=== PATIENT | female | born 1975 | race Caucasian/White ===

== ENCOUNTER 2017-01-13 21:34 | Observation (INO) | payer OTHER ==
[2017-01-13] MEDS ORDERED: Hydromorphone 1 mg/ml Ampule IM ONE (22:05)
[2017-01-13] MEDS ORDERED: Phenergan 25 MG INJ IM ONE (22:05)
--- NOTE | 2017-01-13 22:05 | ERPHSYRPT ---
- History of Present Illness Time Seen by Provider: 01/13/17 21:55 Source: patient Exam Limitations: no limitations Patient Subjective Stated Complaint: pt states she has been having pain in the mid back area and wraps around to her ribs. Triage Nursing Assessment: pt alert and oriented, answers questions approp. pt ambulatory with steady gait noted. respirations nonlabored with lungs cta. Physician History: ABOUT 30 MINUTES AGO PT WAS SITTING WHEN SUDDENLY SHE STARTED WITH SHARP/ACHY MID BACK PAIN, UPPER ABDOMINAL PAIN AND VOMITING X2; DENIES FEVER, COUGH, SHORTNESS OF AIR, ABDOMINAL PAIN, HEMATURIA. Allergies/Adverse Reactions: hydrocodone Adverse Reaction (Verified 01/13/17 21:50) Vomiting heart medication Allergy (Uncoded 01/13/17 21:49) Home Medications: No Home Meds 1 ea [facility] UD 01/13/17 [History] Hx Tetanus, Diphtheria Vaccination/Date Given: Yes (June 2013) Hx Influenza Vaccination/Date Given: No Hx Pneumococcal Vaccination/Date Given: No Immunizations Up to Date: Yes - Review of Systems Constitutional: No Fever Respiratory: No Dyspnea Abdominal/Gastrointestinal: Abdominal Pain, Vomiting Musculoskeletal: Back Pain All Other Systems: Reviewed and Negative - Past Medical History Pertinent Past Medical History: Yes Neurological History: No Pertinent History ENT History: No Pertinent History Cardiac History: Other Respiratory History: No Pertinent History Endocrine Medical History: No Pertinent History Musculoskeletal History: No Pertinent History GI Medical History: No Pertinent History History: No Pertinent History Psycho-Social History: No Pertinent History Female Reproductive Disorders: No Pertinent History Other Medical History: heart condition rapid heart rate at times - Past Surgical History Past Surgical History: Yes Neuro Surgical History: No Pertinent History Cardiac: No Pertinent History Respiratory: No Pertinent History Gastrointestinal: No Pertinent History Genitourinary: No Pertinent History Musculoskeletal: No Pertinent History Female Surgical History: Lumpectomy, Tubal Ligation Other Surgical History: gtube inserted with then removed 2 lumps removed in lt and rt breast - Social History Smoking Status: Never smoker Exposure to second hand smoke: No Drug Use: none Patient Lives Alone: No - Female History Hx Last Menstrual Period: last week Hx Now: No - Nursing Vital Signs Nursing Vital Signs: Initial Vital Signs Temperature 97.9 F Temperature Source Oral Pulse Rate 59 Respiratory Rate 16 Blood Pressure [] 112/56 Pain Intensity [] 10 Pain Intensity 0 - Physical Exam General Appearance: alert Eye Exam: PERRL/EOMI Ears, Nose, Throat Exam: TMs normal, pharynx normal, moist mucous membranes Neck Exam: normal inspection Respiratory Exam: lungs clear Cardiovascular Exam: normal heart sounds Gastrointestinal/Abdomen Exam: normal bowel sounds Back Exam: normal inspection, normal range of motion Extremity Exam: normal inspection, No pedal edema Neurologic Exam: alert, cooperative Skin Exam: warm, dry SpO2 Interpretation: normal SpO2: 99 Oxygen Delivery: Room Air - Course Nursing assessment & vital signs reviewed: Yes - CT Exams Abdomen/Pelvis CT Interpretation: Tele-radiologist Report (CHOLELITHIASIS) - Radiology Ultrasound Exam Gallbladder Ultrasound: Other (TECH REPORT: GALLBLADDER DISEASE.) Ordered Tests: Active Orders 24 hr Category Date Time Status ABDOMEN AND PELVIS W/0 CONTRAS [CT] Stat Exams 01/13/17 23:04 Taken GALLBLADDER [US] Stat Exams 01/14/17 00:00 Taken AMYLASE Stat Lab 01/13/17 22:30 Completed BLOOD CULTURE Stat Lab 01/14/17 02:04 Ordered CBC W DIFF Stat Lab 01/13/17 22:30 Completed CMP Stat Lab 01/13/17 22:30 Completed HCG QUALITATIVE,SERUM Stat Lab 01/13/17 22:30 Completed LIPASE Stat Lab 01/13/17 22:30 Completed UA W/ MICROSCOPIC Stat Lab 01/13/17 22:15 Completed Urine Triage Profile Stat Lab 01/13/17 22:15 Completed Medication Summary Generic Name Dose Route Start Last Admin Trade Name Freq PRN Reason Stop Dose Admin Piperacillin Sod/Tazobactam Sod 100 mls @ 100 mls/hr 01/14/17 02:04 Zosyn 3.375gm/100 Ml D5w IV 01/14/17 03:03 STAT ONE Discontinued Medications Generic Name Dose Route Start Last Admin Trade Name Freq PRN Reason Stop Dose Admin Hydromorphone HCl 1 mg 01/13/17 22:05 01/13/17 22:14 Hydromorphone 1 Mg/Ml Ampule IM 01/13/17 22:06 1 mg STAT ONE Administration Hydromorphone HCl Confirm 01/13/17 22:12 Hydromorphone 1 Mg/Ml Ampule Administered 01/13/17 22:13 Dose 1 mg .ROUTE .STK-MED ONE Promethazine HCl 25 mg 01/13/17 22:05 01/13/17 22:16 Phenergan 25 Mg Inj IM 01/13/17 22:06 25 mg STAT ONE Administration Promethazine HCl Confirm 01/13/17 22:11 Phenergan 25 Mg Inj Administered 01/13/17 22:12 Dose 25 mg .ROUTE .K-MED ONE Lab/Rad Data: Laboratory Result Diagrams 01/13/17 22:30 01/13/17 22:30 Laboratory Results 01/13/17 01/13/17 01/13/17 Range/Units 22:30 22:30 22:30 WBC 11.5 H (4.0-10.5) K/mm3 RBC 4.49 (4.1-5.4) M/mm3 Hgb 11.7 L (12.0-16.0) gm/dl Hct 36.9 (35-47) % MCV 82.2 (78-100) fl MCH 26.0 (26-32) pg MCHC 31.7 L (32-36) g/dl RDW 14.4 H (11.5-14.0) % Plt Count 347 (150-450) K/mm3 MPV 10.2 H (6-9.5) fl Gran % 72.0 H (36.0-66.0) % Lymphocytes % 20.5 L (24.0-44.0) % Monocytes % 5.6 (0.0-12.0) % Eosinophils % 1.6 (0.00-5.0) % Basophils % 0.3 (0.0-0.4) % Basophils # 0.03 (0-0.4) Sodium 142 (136-145) mEq/L Potassium 4.1 (3.5-5.1) mEq/L Chloride 105 (98-107) mEq/L Carbon Dioxide 27.0 (21-32) mEq/L Anion Gap 13.9 (5-15) MEQ/L BUN 10 (9-20) mg/dL Creatinine 0.98 (0.55-1.30) mg/dl Estimated GFR > 60 ML/MIN Glucose 102 (70-110) MG/DL Calcium 9.0 (8.5-10.1) mg/dL Total Bilirubin 0.5 (0.2-1.0) mg/dL AST 69 H (15-37) U/L ALT 44 (12-78) U/L Alkaline Phosphatase 123 H (46-116) U/L Serum Total Protein 7.6 (6.4-8.2) gm/dL Albumin 3.8 (3.4-5.0) g/dL Amylase 31 (25-115) U/L Lipase 134 (73-393) U/L Serum , Qual NEGATIVE (Negative) Ur Collection Type Urine Color (YELLOW) Urine Appearance (CLEAR) Urine pH (5-6) Ur Specific [place] (1.005-1.025) Urine Protein (Negative) Urine Glucose (UA) (NEGATIVE) mg/dL Urine Ketones (NEGATIVE) Urine Nitrite (NEGATIVE) Urine Bilirubin (NEGATIVE) Urine Urobilinogen (0-1) mg/dL Urine WBC (Auto) (NEGATIVE) Urine RBC (Auto) (0-5) Nishant/ul Urine Microscopic RBC (0-2) /HPF Ur Epithelial Cells (FEW) /HPF Urine Bacteria (NEGATIVE) /HPF Urine Opiates Level (NEGATIVE) Ur Methadone (NEGATIVE) Urine Barbiturates (NEGATIVE) Ur Phencyclidine (PCP) (NEGATIVE) Urine Amphetamine (NEGATIVE) U Benzodiazepine Level (NEGATIVE) Urine Cocaine (NEGATIVE) Urine Marijuana (THC) (NEGATIVE) Specimen Received 01/13/17 01/13/17 Range/Units 22:15 22:15 WBC (4.0-10.5) K/mm3 RBC (4.1-5.4) M/mm3 Hgb (12.0-16.0) gm/dl Hct (35-47) % MCV (78-100) fl MCH (26-32) pg MCHC (32-36) g/dl RDW (11.5-14.0) % Plt Count (150-450) K/mm3 MPV (6-9.5) fl Gran % (36.0-66.0) % Lymphocytes % (24.0-44.0) % Monocytes % (0.0-12.0) % Eosinophils % (0.00-5.0) % Basophils % (0.0-0.4) % Basophils # (0-0.4) Sodium (136-145) mEq/L Potassium (3.5-5.1) mEq/L Chloride (98-107) mEq/L Carbon Dioxide (21-32) mEq/L Anion Gap (5-15) MEQ/L BUN (9-20) mg/dL Creatinine (0.55-1.30) mg/dl Estimated GFR ML/MIN Glucose (70-110) MG/DL Calcium (8.5-10.1) mg/dL Total Bilirubin (0.2-1.0) mg/dL AST (15-37) U/L ALT (12-78) U/L Alkaline Phosphatase (46-116) U/L Serum Total Protein (6.4-8.2) gm/dL Albumin (3.4-5.0) g/dL Amylase (25-115) U/L Lipase (73-393) U/L Serum , Qual (Negative) Ur Collection Type CLEAN CATCH Urine Color YELLOW (YELLOW) Urine Appearance CLEAR (CLEAR) Urine pH 8.5 (5-6) Ur Specific [place] 1.020 (1.005-1.025) Urine Protein TRACE (Negative) Urine Glucose (UA) NEGATIVE (NEGATIVE) mg/dL Urine Ketones TRACE (NEGATIVE) Urine Nitrite NEGATIVE (NEGATIVE) Urine Bilirubin NEGATIVE (NEGATIVE) Urine Urobilinogen 1 (0-1) mg/dL Urine WBC (Auto) NEGATIVE (NEGATIVE) Urine RBC (Auto) TRACE NON-HEM (0-5) Nishant/ul Urine Microscopic RBC 0-2 (0-2) /HPF Ur Epithelial Cells FEW (FEW) /HPF Urine Bacteria RARE (NEGATIVE) /HPF Urine Opiates Level NEG. (NEGATIVE) Ur Methadone NEG. (NEGATIVE) Urine Barbiturates NEG. (NEGATIVE) Ur Phencyclidine (PCP) NEG. (NEGATIVE) Urine Amphetamine NEG. (NEGATIVE) U Benzodiazepine Level NEG. (NEGATIVE) Urine Cocaine NEG. (NEGATIVE) Urine Marijuana (THC) NEG. (NEGATIVE) Specimen Received 01/13/17:2215 - Progress Discussed with DrCody: Jennifer (OBS - [id number]) - Departure Time of Disposition: 02:06 Departure Disposition: Observation Clinical Impression: ACUTE CHOLECYSTITIS Condition: Fair Critical Care Time: No Referrals: DOCTOR,NO FAMILY [Primary Care Provider] -
[2017-01-13] MEDS ORDERED: Phenergan 25 MG INJ ONE (22:11)
[2017-01-13] MEDS ORDERED: Hydromorphone 1 mg/ml Ampule ONE (22:12)
[2017-01-13 22:34] LABS: BASOPHIL % 0.3 % (0.0-0.4); Eosinophil % 1.6 % (0.00-5.0); Lymphocytes % 20.5 % (24.0-44.0); Mean Cell Volume 82.2 fl (78-100); Mean Platelet Volume 10.2 fl (6-9.5); Monocytes % 5.6 % (0.0-12.0); Platelet Count 347 K/mm3 (150-450); Red Blood Count 4.49 M/mm3 (4.1-5.4); Red Cell Distribution Width 14.4 % (11.5-14.0); White Blood Count 11.5 K/mm3 (4.0-10.5)
[2017-01-13 22:58] LABS: ALBUMIN 3.8 g/dL (3.4-5.0); ALKALINE PHOSPHATASE 123 U/L (46-116); ANION GAP 13.9 MEQ/L (5-15); BILIRUBIN,TOTAL 0.5 mg/dL (0.2-1.0); BLOOD UREA NITROGEN 10 mg/dL (9-20); CHLORIDE 105 mEq/L (98-107); Glucose 102 MG/DL (70-110); LIPASE 134 U/L (73-393); Potassium 4.1 mEq/L (3.5-5.1); SGOT/AST 69 U/L (15-37); SGPT/ALT 44 U/L (12-78); SODIUM 142 mEq/L (136-145); Total Protein 7.6 gm/dL (6.4-8.2)
[2017-01-13 23:01] LABS: Bacteria RARE /HPF (NEGATIVE); COMPLETE URINE MICROSCOPIC? YES; Collection Type CLEAN CATCH; Epithelial Cells FEW /HPF (FEW); Ph 8.5 (5-6)
[2017-01-14] MEDS ORDERED: Zosyn 3.375GM/100 Ml D5W 100 ML IV ONE ×2 (02:04→02:14)
[2017-01-14] MEDS ORDERED: Sodium Chloride 0.9% 1000 ML 1,000 ML IV SCH (02:46)
[2017-01-14] MEDS ORDERED: DILAUDID 2 MG INJECTION IV PRN (02:46)
[2017-01-14] MEDS ORDERED: Phenergan 25 MG INJ IV PRN (02:46)
[2017-01-14] MEDS: Zosyn 3.375GM/100 Ml D5W 100 ML IV SCH ×3 (06:08→19:55)
[2017-01-14 06:28] LABS: BASOPHIL % 0.2 % (0.0-0.4); Eosinophil % 0.7 % (0.00-5.0); Mean Cell Volume 83.5 fl (78-100); Mean Platelet Volume 10.4 fl (6-9.5); Monocytes % 6.1 % (0.0-12.0); Platelet Count 344 K/mm3 (150-450); Red Blood Count 4.37 M/mm3 (4.1-5.4); Red Cell Distribution Width 14.5 % (11.5-14.0); White Blood Count 10.9 K/mm3 (4.0-10.5)
[2017-01-14 06:29] LABS: Mean Corpuscular Hemoglobin 25.8 pg (26-32)
[2017-01-14 06:48] LABS: ALBUMIN 3.5 g/dL (3.4-5.0); ALKALINE PHOSPHATASE 151 U/L (46-116); ANION GAP 13.7 MEQ/L (5-15); BILIRUBIN,TOTAL 1.1 mg/dL (0.2-1.0); BLOOD UREA NITROGEN 10 mg/dL (9-20); CHLORIDE 104 mEq/L (98-107); Carbon Dioxide 26.3 mEq/L (21-32); Glucose 114 MG/DL (70-110); Potassium 4.2 mEq/L (3.5-5.1); SGOT/AST 203 U/L (15-37); SGPT/ALT 145 U/L (12-78); SODIUM 140 mEq/L (136-145); Total Protein 7.6 gm/dL (6.4-8.2)
[2017-01-14 07:06] LABS: INR 1.08 (0.8-3.0); PROTIME 12.1 SECONDS (9.95-12.35)
[2017-01-14 07:09] LABS: PTT 32.4 SECONDS (25.3-37.0)
[2017-01-14] MEDS ORDERED: Decadron 4 MG INJ IV ONE (08:00)
[2017-01-14] MEDS ORDERED: TORAdol 30 mg Injection IV ONE (08:00)
[2017-01-14] MEDS ORDERED: Zofran 4 MG/2 ML VIAL IV ONE (08:00)
[2017-01-14] MEDS ORDERED: Zemuron 100 MG/10 ML IJ ONE (08:00)
[2017-01-14] MEDS ORDERED: Versed 2 MG/2 ML Injection IV ONE (08:00)
[2017-01-14] MEDS ORDERED: Quelicin Fliptop 200 MG/10 ML IV ONE (08:00)
[2017-01-14] MEDS ORDERED: DIPRIVAN 200 MG/20 ML IV ONE (08:00)
[2017-01-14] MEDS ORDERED: MEFOXIN 2 GM PREMIX** 50 ML IV SCH (08:00)
[2017-01-14] MEDS ORDERED: Lactated Ringers 1,000 ML IV SCH (08:00)
[2017-01-14] MEDS ORDERED: BRIDION 200MG/2ML IV ONE (08:00)
[2017-01-14] MEDS ORDERED: DILAUDID 2 MG INJECTION IV ONE (08:00)
[2017-01-14] MEDS ORDERED: SUBLIMAZE 250 MCG/5 ML IV ONE (08:00)
--- NOTE | 2017-01-14 08:50 | XRAY ---
Indication: Abdominal pain and elevated liver function testing. Multiple contiguous axial images obtained through the abdomen and pelvis without contrast as ordered. Comparison: October 30, 2006. Lung bases clear. Heart is not enlarged. Gallbladder demonstrates gallstones, largest 2.6 cm. No pericholecystic fluid or biliary distention. Again 13 cm splenomegaly. Noncontrasted stomach and bowel loops appear nonobstructed. Normal appendix. No free fluid/air. Remaining liver, pancreas, spleen, adrenal glands, kidneys, ureters, bladder, uterus, and aorta appear unremarkable for noncontrast exam. Osseous structures intact. Impression: 1. Gallstones without acute cholecystitis or biliary distention on this noncontrast exam. 2. Stable splenomegaly. Comment: Preliminary interpretation was made by [facility]. No critical discrepancy. CT DI 19.26
--- NOTE | 2017-01-14 08:52 | XRAY ---
Indication: Back pain and nausea. Two-dimensional right upper quadrant abdominal sonogram performed. Comparison: None Gallbladder demonstrates multiple gallstones. There is gallbladder wall thickening measuring 6.6 mm in thickness. No pericholecystic fluid. Common bile duct measures 4.2 mm. No intrahepatic biliary distention. Remaining visualized portions of the liver, aorta, pancreas, and right kidney appear sonographically unremarkable. Right kidney measures 10.8 cm in length. Impression: Gallstones with gallbladder wall thickening. Rule out chronic cholecystitis. Comment: Preliminary report was given.
[2017-01-14] MEDS: PROTONIX 40 MG IV IV SCH (10:12)
[2017-01-14] MEDS ORDERED: Lactated Ringers 1,000 ML IV ONE (11:06)
[2017-01-14] MEDS ORDERED: Sensorcaine 0.25% 10 ML ONE (11:06)
[2017-01-14] MEDS ORDERED: Pepcid 20 MG VIAL IV SCH (13:00)
[2017-01-14] MEDS ORDERED: BICITRA 30 ML CUP PO SCH (13:00)
[2017-01-14] MEDS ORDERED: DILAUDID 2 MG INJECTION ONE (18:05)
[2017-01-14] MEDS ORDERED: Zofran 4 MG/2 ML VIAL IV PRN (19:37)
[2017-01-14] MEDS ORDERED: Dextrose 5% -0.45 NaCl 1000 ML 1,000 ML IV SCH (21:15)
[2017-01-14] MEDS: MEFOXIN 1 Gm/ D5W 50 Ml** 50 ML IV SCH ×2 (22:15→22:17)
[2017-01-15] MEDS: MEFOXIN 1 Gm/ D5W 50 Ml** 50 ML IV SCH ×2 (00:55→05:33)
[2017-01-15] MEDS: Zosyn 3.375GM/100 Ml D5W 100 ML IV SCH ×2 (01:06→06:31)
[2017-01-15 05:24] LABS: Mean Cell Volume 85.1 fl (78-100); Mean Corpuscular Hemoglobin 25.9 pg (26-32); Mean Platelet Volume 10.9 fl (6-9.5); Platelet Count 371 K/mm3 (150-450); Red Blood Count 3.43 M/mm3 (4.1-5.4); Red Cell Distribution Width 14.6 % (11.5-14.0); White Blood Count 10.8 K/mm3 (4.0-10.5)
[2017-01-15] MEDS ORDERED: Morphine PCA 1 MG/ML 30 ML IV PRN (07:51)
[2017-01-15] MEDS ORDERED: ULTRAM 50 MG PO PRN (07:51)
[2017-01-15] MEDS: PROTONIX 40 MG IV IV SCH (08:23)
[2017-01-15] MEDS ORDERED: ENOXAPARIN SODIUM SQ SCH (10:00)
[2017-01-15 11:10] VITALS: BP 107/70; PULSE 80; O2SAT 96
--- NOTE | 2017-01-17 11:49 | OP ---
SURGERY DATE: 01/14/17 SURGERY TIME: 1649 PREOPERATIVE DIAGNOSIS: 1. ACUTE CHOLECYSTITIS, CHOLELITHIASIS. POSTOPERATIVE DIAGNOSIS: 1. ACUTE CHOLECYSTITIS, CHOLELITHIASIS. PROCEDURE: 1. Laparoscopic cholecystectomy. SURGEON: Vahid Mcguire M.D. ANESTHESIA: General endotracheal tube. COMPLICATIONS: None. CONDITION: Stable. INDICATION: Patient with upper abdominal pain and US positive. Seen and examined. Procedure discussed in detail. Wished to proceed. OPERATIVE PROCEDURE: Taken to surgery. General anesthetic. Routine prep and drape. Veress needle inserted. Opened to a pressure of 1. Insufflated to a pressure of 14. #10 trocar at the umbilicus. Three 5s across the abdomen. Good visualization. The gallbladder was large. The gallbladder distended. Cystic duct defined. Cystic artery defined. Both structures triply Ligaclipped and transected. Clips totally cross wall approximated. Gallbladder rolled out of gallbladder fossa. Gallbladder delivered through the abdominal port. Widened slightly. Field was dry. CO2 was exsufflated. Whole closure device had been used with 0 Vicryl. Skin closed with 4-0 Vicryl. Steri-strips. Patient tolerated the procedure satisfactory.
== END 2017-01-15 12:30 | disposition home or self-care (01) ==
LOC: ED 21:34 → MED SURG 01-14 02:41
PROVIDERS: ADMIT Surgery; ATTEND Surgery
PROC: 0FT44ZZ Resection of Gallbladder, Percutaneous Endoscopic Approach (ICD-10-PCS; principal; 2017-01-14)
DX: K80.00 Calculus of gallbladder with acute cholecystitis without obstruction (principal); R10.10 Upper abdominal pain, unspecified
CPT/HCPCS: 00790; 36415; 74176; 76705; 80053; 80307; 81000; 82150; 83690; 84703; 85025; 85027; 85610; 85730; 87040; 93268; 94760; 96365; 96372; 96374; 99140; 99284; 99285; G0378; J0330; J0694; J1100; J1170; J1650; J1885; J2250; J2405; J2543; J2550; J2704; J3010

== ENCOUNTER 2021-02-25 17:34 | Emergency (ER) | payer OTHER ==
[2021-02-25] MEDS ORDERED: Sodium Chloride 0.9% 1000 ML 1,000 ML IV STA (17:56)
[2021-02-25] MEDS ORDERED: PROTONIX 40 MG IV IV ONE ×2 (17:56→17:59)
[2021-02-25] MEDS ORDERED: MORPHINE SULFATE 4 MG INJ IV ONE (17:56)
[2021-02-25] MEDS ORDERED: MORPHINE SULFATE 4 MG INJ ONE (18:00)
[2021-02-25] MEDS ORDERED: Sodium Chloride 0.9% 1000 ML 1,000 ML ONE (18:00)
[2021-02-25 18:13] LABS: BASOPHIL % 0.1 % (0.0-0.4); Basophil (Absolute #) 0.02 (0-0.4); Eosinophil % 0.2 % (0.00-5.0); Eosinophil (Absolute #) 0.04 (0-0.5); Hematocrit 41.6 % (35-47); Hemoglobin 13.7 gm/dl (12.0-16.0); Lymphocyte (Absolute #) 1.53 (1.0-4.6); Lymphocytes % 8.7 % (24.0-44.0); Mean Cell Volume 85.8 fl (78-100); Mean Corpuscular Hemoglobin 28.2 pg (26-32); Mean Corpuscular Hgb Concent. 32.9 g/dl (32-36); Mean Platelet Volume 10.6 fl (7.5-11.0); Monocyte (Absolute #) 0.88 (0.0-1.3); Platelet Count 260 K/mm3 (150-450); Red Blood Count 4.85 M/mm3 (4.1-5.4); Red Cell Distribution Width 13.4 % (11.5-14.0); White Blood Count 17.7 K/mm3 (4.0-10.5)
[2021-02-25 18:20] LABS: Amourphous Crystal FEW /HPF (NEGATIVE); Appearance CLOUDY (CLEAR); Bilirubin NEGATIVE (NEGATIVE); Blood NEGATIVE Ery/ul (0-5); Epithelial Cells RARE /HPF (FEW); Glucose NEGATIVE (NEGATIVE); Ketones NEGATIVE (NEGATIVE); Leukocyte Esterase NEGATIVE (NEGATIVE); Mucus SLIGHT /HPF (NEGATIVE); Nitrite NEGATIVE (NEGATIVE); Protein,Urine Dip NEGATIVE (Negative); Specific Gravity 1.015 (1.005-1.025); Urobilinogen 2 mg/dL (0-1); WBC 0-2 /HPF (0-5)
--- NOTE | 2021-02-25 18:22 | ERPHSYRPT ---
- History of Present Illness Time Seen by Provider: 02/25/21 17:36 Historian: patient Exam Limitations: no limitations Patient Subjective Stated Complaint: Abdominal pain Triage Nursing Assessment: Patient ambulated back to ED and transferred self to bed. Patient A+O X3. Patient's skin pink, warm and dry. Patient complains of abdominal pain that started this am constant cramping. Patient has been having N/V and diarrhea. Patient states she has vomitted 5 times. Patient complains of constant abdominal pain cramping 09/06. Physician History: 45 years old female presented in the ER with chief complaint of stomach upset since morning. Patient reports she was initially feeling nauseated and later started to have mild generalized abdominal cramp more in the periumbilical area and almost 2 hours ago she started to have vomiting and diarrhea loose stool multiple episodes. No hematochezia or hematemesis reported. Cramping is moderate intensity, aggravated with vomiting and diarrhea. Denies any fever chills or sick contact. Timing/Duration: today, gradual onset, worse Activities at Onset: rest Quality: cramping Abdominal Pain Onset Location: periumbilical Pain Radiation: no radiation Severity of Pain-Max: moderate Severity of Pain-Current: moderate Modifying Factors: Worsens With: vomiting Associated Symptoms: diarrhea, nausea, vomiting Previous symptoms: no prior history Allergies/Adverse Reactions: hydrocodone Adverse Reaction (Verified 02/25/21 17:42) Vomiting heart medication Allergy (Uncoded 02/25/21 17:42) Home Medications: No Home Meds [No Home Meds] 1 [facility] UD 01/13/17 [History] Hx Tetanus, Diphtheria Vaccination/Date Given: Yes (June 2013) Hx Influenza Vaccination/Date Given: Yes Hx Pneumococcal Vaccination/Date Given: No Immunizations Up to Date: Yes Travel Risk - International Travel Have you traveled outside of the country in past 3 weeks: No - Coronavirus Screening Are you exhibiting any of the following symptoms?: No Symptoms: Vomiting/Diarrhea Close contact with a COVID-19 positive Pt in past 14-21 Days: No - Vaccine Status Have you recieved a Covid-19 vaccination: Yes [place]: Moderna - Vaccination Dates Date of 1st Vaccination: 12/04/20 Date of 2cond Vaccination (if applicable): 01/01/2021 - Review of Systems Constitutional: Fatigue, Weakness Eyes: No Symptoms Ears, Nose, & Throat: No Symptoms Respiratory: No Symptoms Cardiac: No Symptoms Abdominal/Gastrointestinal: Abdominal Pain, Nausea, Vomiting, Diarrhea Genitourinary Symptoms: No Symptoms Musculoskeletal: No Symptoms Skin: No Symptoms Neurological: No Symptoms Psychological: No Symptoms Endocrine: No Symptoms Hematologic/Lymphatic: No Symptoms Immunological/Allergic: No Symptoms - Past Medical History Pertinent Past Medical History: Yes Neurological History: No Pertinent History ENT History: No Pertinent History Cardiac History: Other Respiratory History: No Pertinent History Endocrine Medical History: No Pertinent History Musculoskeletal History: No Pertinent History GI Medical History: Gallbladder Disease History: No Pertinent History Psycho-Social History: No Pertinent History Female Reproductive Disorders: Fibroids Other Medical History: heart condition rapid heart rate at times - Past Surgical History Past Surgical History: Yes Neuro Surgical History: No Pertinent History Cardiac: No Pertinent History Respiratory: No Pertinent History Gastrointestinal: Cholecystectomy Genitourinary: No Pertinent History Musculoskeletal: No Pertinent History Female Surgical History: Lumpectomy, Tubal Ligation Other Surgical History: gtube inserted with then removed 2 lumps removed in lt and rt breast - Social History Smoking Status: Never smoker Exposure to second hand smoke: No Drug Use: none Patient Lives Alone: No - Female History Hx Last Menstrual Period: ablation Hx Now: No - Nursing Vital Signs Nursing Vital Signs: Initial Vital Signs Temperature 98.6 F 02/25/21 17:46 Pulse Rate 93 H 02/25/21 17:46 Respiratory Rate 18 02/25/21 17:46 Blood Pressure 156/97 02/25/21 17:46 O2 Sat by Pulse Oximetry 98 02/25/21 17:46 Pain Scale Pain Intensity 4 - Physical Exam General Appearance: no apparent distress Eye Exam: eyes nml inspection Ears, Nose, Throat Exam: normal ENT inspection, pharyngeal erythema Neck Exam: normal inspection, non-tender, supple, full range of motion Respiratory Exam: normal breath sounds, lungs clear Cardiovascular Exam: regular rate/rhythm, normal heart sounds Gastrointestinal/Abdomen Exam: soft, normal bowel sounds, tenderness (Mild periumbilical tenderness without guarding or rebound tenderness. No lower right lower quadrant tenderness.) Back Exam: normal inspection, normal range of motion, No CVA tenderness Extremity Exam: normal inspection, normal range of motion Neurologic Exam: alert, oriented x 3, cooperative Skin Exam: normal color SpO2 Interpretation: normal SpO2: 98 O2 Delivery: Room Air Ordered Tests: Active Orders 24 hr Category Date Time Status IV Insertion STAT Care 02/25/21 17:56 Active NPO (ED) STAT Care 02/25/21 17:56 Active ABDOMEN 2 VIEW Stat Exams 02/25/21 Ordered CBC W DIFF Stat Lab 02/25/21 18:00 Completed CMP Stat Lab 02/25/21 18:00 Completed HCG,QUALITATIVE URINE Stat Lab 02/25/21 18:01 Completed LIPASE Stat Lab 02/25/21 18:00 Completed UA W/RFX UR CULTURE Stat Lab 02/25/21 18:01 Completed Medication Summary Discontinued Medications Generic Name Dose Route Start Last Admin Trade Name Freq PRN Reason Stop Dose Admin Sodium Chloride 1,000 mls @ 999 mls/hr 02/25/21 17:56 02/25/21 18:03 Sodium Chloride 0.9% 1000 Ml IV 02/25/21 18:56 999 mls/hr .Q1H1M STA Administration Sodium Chloride Confirm 02/25/21 18:00 Sodium Chloride 0.9% 1000 Ml Administered 02/25/21 18:01 Dose 1,000 mls @ ud .ROUTE .STK-MED ONE Morphine Sulfate 4 mg 02/25/21 17:56 02/25/21 18:06 Morphine Sulfate 4 Mg Inj IV 02/25/21 17:57 4 mg STAT ONE Administration Morphine Sulfate Confirm 02/25/21 18:00 Morphine Sulfate 4 Mg Inj Administered 02/25/21 18:01 Dose 4 mg .ROUTE .STK-MED ONE Pantoprazole Sodium 40 mg 02/25/21 17:56 02/25/21 18:10 Protonix 40 Mg Iv IV 02/25/21 17:57 40 mg STAT ONE Administration Pantoprazole Sodium Confirm 02/25/21 17:59 Protonix 40 Mg Iv Administered 02/25/21 18:00 Dose 40 mg IV .STK-MED ONE Lab/Rad Data: Laboratory Result Diagrams 02/25/21 18:00 02/25/21 18:00 Laboratory Results 02/25/21 02/25/21 02/25/21 Range/Units 18:01 18:01 18:00 WBC (4.0-10.5) K/mm3 RBC (4.1-5.4) M/mm3 Hgb (12.0-16.0) gm/dl Hct (35-47) % MCV (78-100) fl MCH (26-32) pg MCHC (32-36) g/dl RDW (11.5-14.0) % Plt Count (150-450) K/mm3 MPV (7.5-11.0) fl Gran % (36.0-66.0) % Eos # (Auto) (0-0.5) Absolute Lymphs (auto) (1.0-4.6) Absolute Monos (auto) (0.0-1.3) Lymphocytes % (24.0-44.0) % Monocytes % (0.0-12.0) % Eosinophils % (0.00-5.0) % Basophils % (0.0-0.4) % Absolute Granulocytes (1.4-6.9) Basophils # (0-0.4) Sodium 140 (137-145) mmol/L Potassium 3.7 (3.5-5.1) mmol/L Chloride 102 (98-107) mmol/L Carbon Dioxide 26 (22-30) mmol/L Anion Gap 15.7 H (5-15) MEQ/L BUN 10 (7-17) mg/dL Creatinine 0.88 (0.52-1.04) mg/dL Estimated GFR > 60.0 ML/MIN Glucose 141 H (74-106) mg/dL Calcium 10.0 (8.4-10.2) mg/dL Total Bilirubin 0.80 (0.2-1.3) mg/dL AST 27 (14-36) U/L ALT 25 (0-35) U/L Alkaline Phosphatase 84 (38-126) U/L Serum Total Protein 8.4 H (6.3-8.2) g/dL Albumin 4.9 (3.5-5.0) g/dL Lipase 87 (23-300) U/L Urine Color YELLOW (YELLOW) Urine Appearance CLOUDY (CLEAR) Urine pH 9.0 (5-6) Ur Specific [place] 1.015 (1.005-1.025) Urine Protein NEGATIVE (Negative) Urine Ketones NEGATIVE (NEGATIVE) Urine Blood NEGATIVE (0-5) Nishant/ul Urine Nitrite NEGATIVE (NEGATIVE) Urine Bilirubin NEGATIVE (NEGATIVE) Urine Urobilinogen 2 (0-1) mg/dL Ur Leukocyte Esterase NEGATIVE (NEGATIVE) Urine WBC (Auto) 0-2 (0-5) /HPF Urine RBC (Auto) NONE (0-2) /HPF U Epithel Cells (Auto) RARE (FEW) /HPF Urine Bacteria (Auto) NONE (NEGATIVE) /HPF Amorphous Crystals FEW (NEGATIVE) /HPF Urine Mucus (Auto) SLIGHT (NEGATIVE) /HPF Urine Culture Reflexed NO (NO) Urine Glucose NEGATIVE (NEGATIVE) mg/dL Urine HCG, Qual NEGATIVE (Negative) 02/25/21 Range/Units 18:00 WBC 17.7 H (4.0-10.5) K/mm3 RBC 4.85 (4.1-5.4) M/mm3 Hgb 13.7 (12.0-16.0) gm/dl Hct 41.6 (35-47) % MCV 85.8 (78-100) fl MCH 28.2 (26-32) pg MCHC 32.9 (32-36) g/dl RDW 13.4 (11.5-14.0) % Plt Count 260 (150-450) K/mm3 MPV 10.6 (7.5-11.0) fl Gran % 86.0 H (36.0-66.0) % Eos # (Auto) 0.04 (0-0.5) Absolute Lymphs (auto) 1.53 (1.0-4.6) Absolute Monos (auto) 0.88 (0.0-1.3) Lymphocytes % 8.7 L (24.0-44.0) % Monocytes % 5.0 (0.0-12.0) % Eosinophils % 0.2 (0.00-5.0) % Basophils % 0.1 (0.0-0.4) % Absolute Granulocytes 15.20 H (1.4-6.9) Basophils # 0.02 (0-0.4) Sodium (137-145) mmol/L Potassium (3.5-5.1) mmol/L Chloride (98-107) mmol/L Carbon Dioxide (22-30) mmol/L Anion Gap (5-15) MEQ/L BUN (7-17) mg/dL Creatinine (0.52-1.04) mg/dL Estimated GFR ML/MIN Glucose (74-106) mg/dL Calcium (8.4-10.2) mg/dL Total Bilirubin (0.2-1.3) mg/dL AST (14-36) U/L ALT (0-35) U/L Alkaline Phosphatase (38-126) U/L Serum Total Protein (6.3-8.2) g/dL Albumin (3.5-5.0) g/dL Lipase (23-300) U/L Urine Color (YELLOW) Urine Appearance (CLEAR) Urine pH (5-6) Ur Specific [place] (1.005-1.025) Urine Protein (Negative) Urine Ketones (NEGATIVE) Urine Blood (0-5) Nishant/ul Urine Nitrite (NEGATIVE) Urine Bilirubin (NEGATIVE) Urine Urobilinogen (0-1) mg/dL Ur Leukocyte Esterase (NEGATIVE) Urine WBC (Auto) (0-5) /HPF Urine RBC (Auto) (0-2) /HPF U Epithel Cells (Auto) (FEW) /HPF Urine Bacteria (Auto) (NEGATIVE) /HPF Amorphous Crystals (NEGATIVE) /HPF Urine Mucus (Auto) (NEGATIVE) /HPF Urine Culture Reflexed (NO) Urine Glucose (NEGATIVE) mg/dL Urine HCG, Qual (Negative) - Progress Progress: improved, re-examined Progress Note: 02/25/21 18:56 45 years old is evaluated for abdominal cramping with vomiting and diarrhea without fever chills. Cramping is more in the center of her abdomen with no right lower quadrant tenderness at all. Patient does have history of cholecy stectomy. She is given fluid bolus and morphine for symptomatic relief, on reevaluation her pain is completely resolved. Nausea is better. No episodes of diarrhea while in the ER. Work-up showed white count of 17 and grossly unremarkable chemistries. This could be reactive secondary to gastroenteritis but does not have any peritoneal signs. I did not appreciate any signs of obstruction on abdominal x-rays reviewed by me. Official report is pending. Patient has good bowel sounds. Discussed with patient about symptomatic treatment with Zofran and Tylenol and increasing hydration. Discussed signs symptoms of worsening needing return to ER which she seems understanding. Counseled pt/family regarding: lab results, diagnosis, need for follow-up, rad results - Departure Departure Disposition: Home Clinical Impression: Acute gastroenteritis Leukocytosis Qualifiers: Leukocytosis type: unspecified Qualified Code(s): D72.829 - Elevated white blood cell count, unspecified Condition: Stable Critical Care Time: No Referrals: DOCTOR,NO FAMILY [Primary Care Provider] - MARC MONROE MD [ACTIVE STAFF] - (1-2 days for reevaluation. ) Instructions: Acute Abdomen (Belly Pain), Viral Gastroenteritis, Adult (DC) Additional Instructions: Drink plenty of fluids. Take Tylenol/Zofran as needed. Follow-up with primary care physician for reevaluation. Return to ER for worsening pain, intractable vomiting diarrhea or if develop fever chills. Prescriptions: Ondansetron ODT 4 MG [Zofran Odt 4 mg] 4 mg PO Q6H PRN PRN #7 tab.rapdis PRN Reason: Vomiting
[2021-02-25 18:28] LABS: ALBUMIN 4.9 g/dL (3.5-5.0); ALKALINE PHOSPHATASE 84 U/L (38-126); ANION GAP 15.7 MEQ/L (5-15); BLOOD UREA NITROGEN 10 mg/dL (7-17); CHLORIDE 102 mmol/L (98-107); Carbon Dioxide 26 mmol/L (22-30); Creatinine 1 0.88 mg/dL (0.52-1.04); EST GLOMERULAR FILTRATION RATE > 60.0 ML/MIN; Glucose 141 mg/dL (74-106); LIPASE 87 U/L (23-300); Potassium 3.7 mmol/L (3.5-5.1); SGOT/AST 27 U/L (14-36); SGPT/ALT 25 U/L (0-35); SODIUM 140 mmol/L (137-145); Total Protein 8.4 g/dL (6.3-8.2)
[2021-02-25 19:15] VITALS: BP 164/83; PULSE 87; O2SAT 99
--- NOTE | 2021-02-26 08:40 | XRAY ---
Indication: Nausea and vomiting. Gastroenteritis. Comparison: None 2 view abdomen nonacute and nonobstructed with cholecystectomy clips. Solid organs and osseous structures unremarkable.
== END 2021-02-25 19:15 | disposition home or self-care (01) ==
LOC: ED 17:34
DX: K52.9 Noninfective gastroenteritis and colitis, unspecified (principal)
CPT/HCPCS: 36000; 36415; 74021; 80053; 81001; 83690; 84703; 85025; 96360; 96374; 96375; 99284; J2270